=== PATIENT | female | born 1990 | race Caucasian/White ===

== ENCOUNTER 2019-04-12 12:28 | Inpatient (IN) ==
[2019-04-12] MEDS ORDERED: Ondansetron 4 MG/2 ML VIAL IVP PRN (12:34)
[2019-04-12] MEDS ORDERED: *HR* Nalbuphine 10 MG/ML AMPUL IVP PRN (12:34)
[2019-04-12] MEDS ORDERED: Lidocaine 1% 20 ML MDV INFILT PRN (12:34)
[2019-04-12] MEDS ORDERED: Naloxone 0.4 MG/ML INJ IVP PRN (12:34)
[2019-04-12] MEDS ORDERED: Metoclopramide 10 MG/2 ML VIAL IVP PRN (12:34)
[2019-04-12] MEDS ORDERED: Famotidine 20 MG/2 ML VIAL IVP PRN (12:34)
[2019-04-12] MEDS ORDERED: miSOPROStoL 25 MCG TABLET PO PRN (12:34)
[2019-04-12] MEDS ORDERED: Oxytocin 20 units/ LR 1000 mL 20 UNIT/1,000 ML BAG IVC SCH (12:45)
[2019-04-12] MEDS: Ringers Solution, Lactated 1,000 ML IVC SCH ×3 (13:34→21:52)
[2019-04-12 13:41] LABS: Basophils # 0.1 K/mcL (0.0-0.2); Basophils % 1.1 %; Eosinophils # 0.1 K/mcL (0.0-0.6); Eosinophils % 1.4 %; Hematocrit 35.8 % (35.3-44.9); Hemoglobin 12.2 g/dL (11.5-15.4); Immature Granulocytes % 3.7 % (0-4); Lymphocytes # 1.6 K/mcL (0.6-4.6); Lymphocytes % 16.7 %; Mean Corpuscular HGB Conc 34.1 g/dL (31.6-35.5); Mean Corpuscular Hemoglobin 34.8 pg (28.0-33.3); Mean Platelet Volume 10.7 fL (9.4-12.4); Monocytes # 0.9 K/mcL (0.0-1.3); Neutrophils # 6.2 K/mcL (1.6-8.9); Platelet Count 232 K/mcL (140-400); Red Blood Count 3.51 M/mcL (3.82-4.97); Segmented Neutrophils % 67.1 %; White Blood Count 9.3 K/mcL (4.3-11.1)
[2019-04-12 13:49] LABS: Amphetamine Screen,Urine Negative ng/mL (Cutoff=1000); Barbiturate Screen,Urine Negative ng/mL (Cutoff=200); Benzodiazepines Screen,Urine Negative ng/mL (Cutoff=200); Cannabinoid Screen,Urine Negative ng/mL (Cutoff = 50); Cocaine Screen,Urine Negative ng/mL (Cutoff= 300); Opiate Screen,Urine Negative ng/mL (Cutoff=300); Phencyclidine Screen,Urine Negative ng/mL (Cutoff=25)
[2019-04-12] MEDS ORDERED: Epidural Premix (fent/bupiv) 110 ML EP SCH (15:00)
[2019-04-13] MEDS ORDERED: Benzocaine/Menthol 56 GM AEROSOL SPRAY TP PRN (06:19)
[2019-04-13] MEDS ORDERED: Lanolin 7 G OINT...G. TP PRN (06:19)
[2019-04-13] MEDS ORDERED: Oxytocin 20 units/ LR 1000 mL 20 UNIT/1,000 ML BAG IVC SCH (06:19)
[2019-04-13] MEDS: Acetaminophen 325 MG TABLET PO PRN ×3 (07:24→20:25)
[2019-04-13] MEDS: Prenatal Vit/FA 1 EACH TABLET PO SCH (08:10)
[2019-04-13] MEDS: Ibuprofen 600 MG TABLET PO PRN ×2 (13:16→20:25)
[2019-04-14 08:17] VITALS: BP 119/70
[2019-04-14] MEDS: Prenatal Vit/FA 1 EACH TABLET PO SCH (09:27)
[2019-04-14] MEDS: Acetaminophen 325 MG TABLET PO PRN (09:30)
[2019-04-14] MEDS: Ibuprofen 600 MG TABLET PO PRN (09:30)
== END 2019-04-14 11:51 | disposition home or self-care (01) | DRG 560 ==
LOC: 1NENULAB → OBSVTOIN 12:28 → 1NENUOBS 04-13 07:51
PROVIDERS: ADMIT Registered Nurse; ATTEND Registered Nurse